=== PATIENT | female | born 1930 | race Caucasian/White ===

== ENCOUNTER 2016-12-26 08:33 | Outpatient (CLI) | payer MEDICARE, OTHER ==
[2016-12-26 19:59] LABS: BASOPHILS # (AUTO) 0.1 10^3/uL (0.0-0.1); BASOPHILS % (AUTO) 1.1 %; EOSINOPHILS # (AUTO) 0.5 10^3/uL (0.0-0.7); EOSINOPHILS % (AUTO) 4.3 %; HCT - HEMATOCRIT 41.4 % (37.0-47.0); HGB - HEMOGLOBIN 13.3 g/dL (12.0-16.0); LYMPHOCYTES # (AUTO) 2.9 10^3/uL (1.5-3.5); LYMPHOCYTES % (AUTO) 25.8 %; MEAN CORPUSCULAR HEMOGLOBIN 28.6 pg (27.0-31.0); MEAN CORPUSCULAR HGB CONC 32.1 g/dL (32.0-36.0); MEAN CORPUSCULAR VOLUME 89.3 fL (81.0-99.0); MEAN PLATELET VOLUME 11.1 fL (7.9-10.8); MONOCYTES % (AUTO) 9.2 %; NEUTROPHILS # (AUTO) 6.7 10^3/uL (1.5-6.6); NEUTROPHILS % (AUTO) 59.6 %; NUCLEATED RED BLOOD CELLS AUTO 0.1 /100WBC; RED BLOOD COUNT 4.64 10^6/uL (4.20-5.40); RED CELL DISTRIBUTION WIDTH 13.6 % (12.0-15.0); UNCORRECTED WHITE BLOOD COUNT 11.3 x10^3/uL; WHITE BLOOD COUNT 11.3 x10^3/uL (4.8-10.8)
[2016-12-26 20:09] LABS: CALCIUM 10.4 mg/dL (8.5-10.3); CREATININE 1.3 mg/dL (0.4-1.0); MAGNESIUM 1.5 mg/dL (1.7-2.8); POTASSIUM 3.8 mmol/L (3.5-5.0)
== END 2016-12-26 08:34 | disposition home or self-care (01) ==
LOC: LAB.R 08:33
DX: E83.42 Hypomagnesemia (principal); R79.89 Other specified abnormal findings of blood chemistry; R68.89 Other general symptoms and signs
CPT/HCPCS: 80048; 83735; 85025

== ENCOUNTER 2017-01-11 14:50 | Outpatient (CLI) | payer MEDICARE, OTHER | END 2017-01-11 14:51 | disposition home or self-care (01) | DX: R79.9 Abnormal finding of blood chemistry, unspecified (principal) ==

== ENCOUNTER 2017-01-26 08:00 | Outpatient (CLI) | payer MEDICARE, OTHER ==
[2017-01-26 23:17] LABS: BILIRUBIN,URINE NEGATIVE (NEGATIVE); PH,URINE 6.5 PH (5.0-7.5)
[2017-01-26 23:21] LABS: UA w/ MICROSCOPIC CHARGE YES
[2017-01-26 23:44] LABS: UR CULTURE IF IND NOT INDICATED; WBC,URINE >25 /HPF (0-5)
== END 2017-01-26 08:01 | disposition home or self-care (01) ==
LOC: LAB.R 08:00
DX: N39.0 Urinary tract infection, site not specified (principal)
CPT/HCPCS: 81001; 81003; 87086

== ENCOUNTER 2017-02-24 08:00 | Outpatient (CLI) | payer MEDICARE, OTHER ==
[2017-02-24 21:44] LABS: BASOPHILS # (AUTO) 0.1 10^3/uL (0.0-0.1); BASOPHILS % (AUTO) 0.6 %; EOSINOPHILS # (AUTO) 0.4 10^3/uL (0.0-0.7); EOSINOPHILS % (AUTO) 4.2 %; HCT - HEMATOCRIT 40.3 % (37.0-47.0); LYMPHOCYTES # (AUTO) 2.7 10^3/uL (1.5-3.5); LYMPHOCYTES % (AUTO) 27.9 %; MEAN CORPUSCULAR HEMOGLOBIN 28.5 pg (27.0-31.0); MEAN CORPUSCULAR HGB CONC 32.3 g/dL (32.0-36.0); MEAN CORPUSCULAR VOLUME 88.4 fL (81.0-99.0); MEAN PLATELET VOLUME 9.6 fL (7.9-10.8); MONOCYTES # (AUTO) 0.9 10^3/uL (0.0-1.0); MONOCYTES % (AUTO) 8.9 %; NEUTROPHILS # (AUTO) 5.6 10^3/uL (1.5-6.6); NEUTROPHILS % (AUTO) 58.4 %; NUCLEATED RED BLOOD CELLS AUTO 0.1 /100WBC; RED BLOOD COUNT 4.56 10^6/uL (4.20-5.40); RED CELL DISTRIBUTION WIDTH 14.8 % (12.0-15.0); UNCORRECTED WHITE BLOOD COUNT 9.6 x10^3/uL; WHITE BLOOD COUNT 9.6 x10^3/uL (4.8-10.8)
[2017-02-24 21:57] LABS: ALBUMIN/GLOBULIN RATIO 0.8 (1.0-2.2); BILIRUBIN,TOTAL 0.4 mg/dL (0.2-1.0); CALCIUM 9.9 mg/dL (8.5-10.3); CREATININE 1.5 mg/dL (0.4-1.0); POTASSIUM 3.2 mmol/L (3.5-5.0); TOTAL PROTEIN 7.3 g/dL (6.7-8.2)
[2017-02-24 22:28] LABS: THYROID STIMULATING HORMONE 0.22 uIU/mL (0.34-5.60)
== END 2017-02-24 08:01 | disposition home or self-care (01) ==
LOC: LAB.R 08:00
DX: I10 Essential (primary) hypertension (principal); E03.9 Hypothyroidism, unspecified
CPT/HCPCS: 80053; 82465; 84439; 84443; 85025

== ENCOUNTER 2017-03-06 16:20 | Outpatient (CLI) | payer MEDICARE, OTHER ==
[2017-03-06 01:06] LABS: CALCIUM 9.9 mg/dL (8.5-10.3); CREATININE 1.6 mg/dL (0.4-1.0); POTASSIUM 4.5 mmol/L (3.5-5.0)
== END 2017-03-06 16:21 | disposition home or self-care (01) ==
LOC: LAB.R 16:20
DX: R79.89 Other specified abnormal findings of blood chemistry (principal)
CPT/HCPCS: 80048

== ENCOUNTER 2017-05-28 15:10 | Outpatient (CLI) | payer MEDICARE, OTHER ==
[2017-05-28 16:10] LABS: CALCIUM 10.3 mg/dL (8.5-10.3); CREATININE 1.3 mg/dL (0.4-1.0)
[2017-05-28 16:43] LABS: THYROID STIMULATING HORMONE 1.98 uIU/mL (0.34-5.60)
== END 2017-05-28 15:11 | disposition home or self-care (01) ==
LOC: LAB.R 15:10
DX: F32.9 Major depressive disorder, single episode, unspecified (principal); E03.9 Hypothyroidism, unspecified
CPT/HCPCS: 80048; 84439; 84443

== ENCOUNTER 2017-08-07 08:00 | Outpatient (CLI) | payer MEDICARE, OTHER ==
[2017-08-07 14:23] LABS: BASOPHILS # (AUTO) 0.1 10^3/uL (0.0-0.1); BASOPHILS % (AUTO) 0.6 %; EOSINOPHILS # (AUTO) 0.7 10^3/uL (0.0-0.7); EOSINOPHILS % (AUTO) 7.8 %; HGB - HEMOGLOBIN 12.8 g/dL (12.0-16.0); LYMPHOCYTES # (AUTO) 2.3 10^3/uL (1.5-3.5); LYMPHOCYTES % (AUTO) 26.6 %; MEAN CORPUSCULAR HEMOGLOBIN 29.4 pg (27.0-31.0); MEAN CORPUSCULAR HGB CONC 32.7 g/dL (32.0-36.0); MEAN CORPUSCULAR VOLUME 89.9 fL (81.0-99.0); MEAN PLATELET VOLUME 10.1 fL (7.9-10.8); MONOCYTES # (AUTO) 0.8 10^3/uL (0.0-1.0); NEUTROPHILS # (AUTO) 4.8 10^3/uL (1.5-6.6); NUCLEATED RED BLOOD CELLS AUTO 0.1 /100WBC; RED BLOOD COUNT 4.34 10^6/uL (4.20-5.40); RED CELL DISTRIBUTION WIDTH 14.2 % (12.0-15.0); UNCORRECTED WHITE BLOOD COUNT 8.6 x10^3/uL; WHITE BLOOD COUNT 8.6 x10^3/uL (4.8-10.8)
[2017-08-07 14:27] LABS: ALBUMIN/GLOBULIN RATIO 1.1 (1.0-2.2); BILIRUBIN,TOTAL 0.5 mg/dL (0.2-1.0); BUN - BLOOD UREA NITROGEN 19 mg/dL (6-20); CALCIUM 9.9 mg/dL (8.5-10.3); CARBON DIOXIDE - CO2 29 mmol/L (21-32); CHLORIDE 96 mmol/L (101-111); CREATININE 1.2 mg/dL (0.4-1.0); GFR - MDRD 42 (>89); GLUCOSE 103 mg/dL (70-100); POTASSIUM 3.8 mmol/L (3.5-5.0); SODIUM 135 mmol/L (135-145); TOTAL PROTEIN 6.6 g/dL (6.7-8.2)
[2017-08-07 14:33] LABS: BILIRUBIN,URINE NEGATIVE (NEGATIVE); PH,URINE 7.5 PH (5.0-7.5)
[2017-08-07 15:03] LABS: UA CHARGE (STRIP ONLY) YES; UR CULTURE IF IND NOT INDICATED
== END 2017-08-07 08:01 ==
LOC: LAB.R 08:00
DX: I50.9 Heart failure, unspecified (principal); N39.0 Urinary tract infection, site not specified; Q66.7 Congenital pes cavus
CPT/HCPCS: 80053; 81001; 81003; 84443; 85025; 87086

== ENCOUNTER 2017-09-16 19:00 | Outpatient (CLI) | payer MEDICARE, OTHER ==
[2017-09-16 20:41] LABS: BASOPHILS # (AUTO) 0.1 10^3/uL (0.0-0.1); EOSINOPHILS # (AUTO) 0.7 10^3/uL (0.0-0.7); EOSINOPHILS % (AUTO) 6.7 %; HGB - HEMOGLOBIN 12.8 g/dL (12.0-16.0); LYMPHOCYTES # (AUTO) 2.9 10^3/uL (1.5-3.5); LYMPHOCYTES % (AUTO) 28.1 %; MEAN CORPUSCULAR HEMOGLOBIN 28.7 pg (27.0-31.0); MEAN CORPUSCULAR HGB CONC 31.8 g/dL (32.0-36.0); MEAN CORPUSCULAR VOLUME 90.2 fL (81.0-99.0); MEAN PLATELET VOLUME 10.4 fL (7.9-10.8); MONOCYTES # (AUTO) 0.9 10^3/uL (0.0-1.0); MONOCYTES % (AUTO) 9.2 %; NEUTROPHILS # (AUTO) 5.6 10^3/uL (1.5-6.6); PLT - PLATELET COUNT 253 10^3/uL (130-450); RED BLOOD COUNT 4.45 10^6/uL (4.20-5.40); RED CELL DISTRIBUTION WIDTH 13.8 % (12.0-15.0); WHITE BLOOD COUNT 10.2 x10^3/uL (4.8-10.8)
[2017-09-16 20:57] LABS: ALBUMIN 3.8 g/dL (3.2-5.5); ALBUMIN/GLOBULIN RATIO 1.1 (1.0-2.2); BILIRUBIN,TOTAL 0.5 mg/dL (0.2-1.0); CALCIUM 9.9 mg/dL (8.5-10.3); CREATININE 1.3 mg/dL (0.4-1.0); TOTAL PROTEIN 7.4 g/dL (6.7-8.2)
[2017-09-16 21:13] LABS: THYROID STIMULATING HORMONE 0.31 uIU/mL (0.34-5.60)
[2017-09-16 21:15] LABS: FREE T4 (FREE THYROXINE) 1.14 ng/dL (0.58-1.64)
== END 2017-09-16 19:01 ==
LOC: LAB.R 19:00
DX: R79.89 Other specified abnormal findings of blood chemistry (principal); R70.0 Elevated erythrocyte sedimentation rate; E03.9 Hypothyroidism, unspecified; F33.3 Major depressive disorder, recurrent, severe with psychotic symptoms
CPT/HCPCS: 80053; 84439; 84443; 85025; 85651

== ENCOUNTER 2017-11-24 08:00 | Outpatient (CLI) | payer MEDICARE, OTHER ==
[2017-11-24 13:45] LABS: BASOPHILS # (AUTO) 0.1 10^3/uL (0.0-0.1); BASOPHILS % (AUTO) 0.8 %; EOSINOPHILS # (AUTO) 0.4 10^3/uL (0.0-0.7); EOSINOPHILS % (AUTO) 4.7 %; HGB - HEMOGLOBIN 12.8 g/dL (12.0-16.0); LYMPHOCYTES # (AUTO) 2.2 10^3/uL (1.5-3.5); LYMPHOCYTES % (AUTO) 23.7 %; MEAN CORPUSCULAR HEMOGLOBIN 29.4 pg (27.0-31.0); MEAN CORPUSCULAR HGB CONC 32.8 g/dL (32.0-36.0); MEAN CORPUSCULAR VOLUME 89.4 fL (81.0-99.0); MEAN PLATELET VOLUME 9.8 fL (7.9-10.8); MONOCYTES % (AUTO) 10.3 %; NEUTROPHILS # (AUTO) 5.6 10^3/uL (1.5-6.6); NEUTROPHILS % (AUTO) 60.5 %; PLT - PLATELET COUNT 256 10^3/uL (130-450); RED BLOOD COUNT 4.36 10^6/uL (4.20-5.40); RED CELL DISTRIBUTION WIDTH 13.2 % (12.0-15.0); WHITE BLOOD COUNT 9.2 x10^3/uL (4.8-10.8)
[2017-11-24 14:38] LABS: CHOL/HDL RATIO 3.1 (<4.4); CHOLESTEROL 157 mg/dL; HDL CHOLESTEROL 51 mg/dL; LDL CHOLESTEROL,CALCULATED 90 mg/dL; LDL/HDL RATIO 1.8 (<4.4); VLDL CHOLESTEROL 16 mg/dL
== END 2017-11-24 08:01 ==
LOC: LAB.R 08:00
DX: E78.5 Hyperlipidemia, unspecified (principal); I10 Essential (primary) hypertension; R70.0 Elevated erythrocyte sedimentation rate; E55.9 Vitamin D deficiency, unspecified
CPT/HCPCS: 80061; 82306; 83721; 84443; 85025; 85651

== ENCOUNTER 2017-11-25 08:00 | Outpatient (CLI) | payer MEDICARE, OTHER ==
[2017-11-25 18:16] LABS: BILIRUBIN,URINE NEGATIVE (NEGATIVE); GLUCOSE, URINE (UA) NEGATIVE (NEGATIVE); KETONES,URINE (UA) NEGATIVE (NEGATIVE); LEUKOCYTE ESTERASE, URINE NEGATIVE (NEGATIVE); NITRITE,URINE NEGATIVE (NEGATIVE); OCCULT BLOOD,URINE NEGATIVE (NEGATIVE); PH,URINE 6.5 PH (5.0-7.5); PROTEIN,URINE NEGATIVE (NEGATIVE); UROBILINOGEN,URINE 0.2 (NORMAL) E.U./dL (NORMAL)
[2017-11-25 18:17] LABS: CLARITY,URINE CLEAR (CLEAR)
== END 2017-11-25 08:01 ==
LOC: LAB.R 08:00
DX: N18.6 End stage renal disease (principal)
CPT/HCPCS: 81001; 81003; 87086

== ENCOUNTER 2017-12-25 08:00 | Outpatient (CLI) | payer MEDICARE, OTHER | END 2017-12-25 08:01 | disposition home or self-care (01) | LOC: LAB.R 08:00 | DX: E03.9 Hypothyroidism, unspecified (principal) | CPT/HCPCS: 84443 ==

== ENCOUNTER 2018-03-09 21:28 | Outpatient (CLI) | payer MEDICARE, OTHER | END 2018-03-09 21:29 | disposition critical access hospital (66) | LOC: EMS 21:28 | PROVIDERS: ATTEND Surgery | DX: R17 Unspecified jaundice (principal); R63.3 Feeding difficulties | CPT/HCPCS: A0425; A0429 ==

== ENCOUNTER 2018-03-09 21:36 | Inpatient (IN) | payer MEDICARE, OTHER ==
--- NOTE | 2018-03-09 21:49 | ED Physician Documentation ---
History of Present Illness - Stated complaint Stated Complaint: NOT EATING, YELLOW - Chief complaint Chief Complaint: General - History obtained from History obtained from: EMS, Caregiver, Other (PMD (Dr. Crespo called and discussed this case with me prior to patient's arrival). Patient cannot contribute to HPI or reliably to ROS due to dementia/confusion) - History of Present Illness Timing: Other (noted today by staff at [facility]) - Additonal information Additional information: sent from [facility] for jaundice that was noted today, as well as not taking in PO x 1- 2 days. Review of Systems Unable to obtain: Dementia PD PAST MEDICAL HISTORY - Past Medical History Past Medical History: Yes Cardiovascular: Hypertension Endocrine/Autoimmune: HyPOthyroidism Musculoskeletal: Chronic back pain - Past Surgical History Past Surgical History: Yes General: Cholecystectomy, Appendectomy Ortho: Knee replacement /REFRIGERATION TECHNICIAN: Mastectomy - Present Medications Home Medications: Ambulatory Orders Medication Instructions Recorded Confirmed Levothyroxine [Synthroid] 100 mcg PO MOTUWETHFRSA@0600 03/04/14 03/10/18 Chlorthalidone 25 mg PO MOWEFR@0800 07/03/16 03/10/18 Acetaminophen [Tylenol Extra 500 mg PO Q6H PRN 03/10/18 03/10/18 Strength] Albuterol 2.5 mg INH Q4H PRN 03/10/18 03/10/18 Atenolol [Tenormin] 25 mg PO DAILY 03/10/18 03/10/18 Calcium Carbonate [Tums (Calcium 500 mg PO QDDINNER 03/10/18 03/10/18 Carbonate 500mg)] DULoxetine [Cymbalta] 20 mg PO DAILY 03/10/18 03/10/18 Gabapentin [Neurontin] 100 mg PO QPM 03/10/18 03/10/18 HYDROcod/ACETAM 5/325 [Coats 5/325] 1 tab PO Q4H PRN 03/10/18 03/10/18 Levothyroxine Sodium [Synthroid] 50 mcg PO [place]@59903/10/18 03/10/18 Omeprazole [PriLOSEC] 20 mg PO DAILY 03/10/18 03/10/18 Potassium Chloride [Micro-K] 10 meq PO 0800 03/10/18 03/10/18 Promethazine Supp [Phenergan Supp] 25 mg [place] Q6H PRN 03/10/18 03/10/18 raNITIdine [Zantac] 150 mg PO DAILY 03/10/18 03/10/18 - Allergies Allergies/Adverse Reactions: Allergies Allergy/AdvReac Type Severity Reaction Status Date / Time No Known Drug Allergies Allergy Verified 03/09/18 21:47 - Social History Does the pt smoke?: No Smoking Status: Never smoker Does the pt drink ETOH?: No Does the pt have substance abuse?: No - Immunizations Immunizations are current?: No Immunizations: TDAP >10years/unknown, Other immun current, Other immun not current - POLST Patient has POLST: Yes PD ED PE NORMAL - Vitals Vital signs reviewed: Yes - General General: No acute distress, Well developed/nourished, Other (awake, alert, pleasant and conversant but confused, only oriented to self) - HEENT HEENT: PERRL, EOMI, Other (mild bilateral icteric sclera) - Neck Neck: Supple, no meningeal sign - Cardiac Cardiac: RRR - Respiratory Respiratory: No respiratory distress, Clear bilaterally - Abdomen Abdomen: Normal bowel sounds, Soft, Non tender, Non distended, No organomegaly - Derm Derm: Normal color, Warm and dry - Extremities Extremities: No edema - Neuro Neuro: No motor deficit, No sensory deficit, Normal speech Eye Opening: Spontaneous Motor: Obeys Commands Verbal: Confused GCS Score: 14 PD ED PE EXPANDED - Cardiac Cardiac: Murmur Present (2/6 RADHA at base) Results - Vitals Vitals: Vital Signs - 24 hr 03/09/18 03/09/18 03/10/18 22:27 23:43 01:08 Temperature Heart Rate 62 71 60 Heart Rate [ Brachial] Respiratory 16 18 16 Rate Blood Pressure 114/68 125/68 105/64 Blood Pressure [Left Radial artery] O2 Saturation 97 96 97 03/10/18 03/10/18 03/10/18 01:54 02:48 06:15 Temperature 36.0 C L 36.3 C L 36.3 C L Heart Rate 60 Heart Rate [ 61 60 Brachial] Respiratory 18 18 16 Rate Blood Pressure 123/73 Blood Pressure 101/86 H 129/55 L [Left Radial artery] O2 Saturation 99 98 100 03/10/18 03/10/18 03/10/18 07:39 12:05 12:14 Temperature 36.3 C L 36.3 C L Heart Rate Heart Rate [ 55 L 56 L 58 L Brachial] Respiratory 19 16 16 Rate Blood Pressure Blood Pressure 124/55 L 122/105 H 127/58 L [Left Radial artery] O2 Saturation 98 100 99 03/10/18 15:42 Temperature 36.2 C L Heart Rate Heart Rate [ 55 L Brachial] Respiratory 18 Rate Blood Pressure Blood Pressure 123/55 L [Left Radial artery] O2 Saturation 96 Oxygen O2 Source [With Activity] Room air O2 Source Room air - Labs Labs: Laboratory Tests 03/09/18 03/09/18 03/09/18 22:02 22:02 22:02 WBC 10.3 RBC 4.39 Hgb 12.8 Hct 39.0 MCV 88.9 MCH 29.3 MCHC 32.9 RDW 14.9 Plt Count 330 MPV 9.3 Neut # (Auto) 6.6 Lymph # (Auto) 2.0 [place] # (Auto) 1.3 H Eos # (Auto) 0.4 Baso # (Auto) 0.1 Absolute Nucleated RBC 0.00 Nucleated RBC % 0.0 Sodium 128 L Potassium 2.8 L Chloride 88 L Carbon Dioxide 33 H Anion Gap 7.0 BUN 15 Creatinine 1.1 H Estimated GFR (MDRD) 47 L Glucose 122 H Lactic Acid 1.5 Calcium 9.2 Phosphorus Magnesium Total Bilirubin 7.6 H Direct Bilirubin 4.2 H AST 139 H ALT 65 H Alkaline Phosphatase 305 H Total Protein 6.5 L Albumin 2.8 L Globulin 3.7 Albumin/Globulin Ratio 03/10/18 03/10/18 03/10/18 06:06 06:06 06:06 WBC 9.0 RBC 4.47 Hgb 13.1 Hct 39.9 MCV 89.1 MCH 29.4 MCHC 33.0 RDW 14.5 Plt Count 291 MPV 8.8 Neut # (Auto) 5.6 Lymph # (Auto) 1.7 [place] # (Auto) 1.3 H Eos # (Auto) 0.4 Baso # (Auto) 0.1 Absolute Nucleated RBC 0.00 Nucleated RBC % 0.0 Sodium 132 L Potassium 2.8 L Chloride 92 L Carbon Dioxide 33 H Anion Gap 7.0 BUN 13 Creatinine 1.1 H Estimated GFR (MDRD) 47 L Glucose 112 H Lactic Acid 1.1 Calcium 9.1 Phosphorus 2.8 Magnesium 1.3 L Total Bilirubin 7.8 H Direct Bilirubin AST 129 H ALT 62 H Alkaline Phosphatase 287 H Total Protein 6.1 L Albumin 2.4 L Globulin 3.7 Albumin/Globulin Ratio 0.6 L - Rads (name of study) CT A/P Radiology: Prelim report reviewed, See rad report PD MEDICAL DECISION MAKING - ED course Complexity details: reviewed old records, reviewed results, re-evaluated patient , considered differential, d/w patient - Sepsis Event Vital Signs: Vital Signs - 24 hr 03/09/18 03/09/18 03/10/18 22:27 23:43 01:08 Temperature Heart Rate 62 71 60 Heart Rate [ Brachial] Respiratory 16 18 16 Rate Blood Pressure 114/68 125/68 105/64 Blood Pressure [Left Radial artery] O2 Saturation 97 96 97 03/10/18 03/10/18 03/10/18 01:54 02:48 06:15 Temperature 36.0 C L 36.3 C L 36.3 C L Heart Rate 60 Heart Rate [ 61 60 Brachial] Respiratory 18 18 16 Rate Blood Pressure 123/73 Blood Pressure 101/86 H 129/55 L [Left Radial artery] O2 Saturation 99 98 100 03/10/18 03/10/18 03/10/18 07:39 12:05 12:14 Temperature 36.3 C L 36.3 C L Heart Rate Heart Rate [ 55 L 56 L 58 L Brachial] Respiratory 19 16 16 Rate Blood Pressure Blood Pressure 124/55 L 122/105 H 127/58 L [Left Radial artery] O2 Saturation 98 100 99 03/10/18 15:42 Temperature 36.2 C L Heart Rate Heart Rate [ 55 L Brachial] Respiratory 18 Rate Blood Pressure Blood Pressure 123/55 L [Left Radial artery] O2 Saturation 96 Oxygen O2 Source [With Activity] Room air O2 Source Room air Departure - Departure Disposition: ED Place in Observation Clinical Impression: Hyperbilirubinemia, Hypokalemia, Pancreatic mass Condition: Stable Discharge Date/Time: 03/10/18 02:16
[2018-03-09 22:13] LABS: BASOPHILS # (AUTO) 0.1 10^3/uL (0.0-0.1); BASOPHILS % (AUTO) 0.9 %; EOSINOPHILS # (AUTO) 0.4 10^3/uL (0.0-0.7); EOSINOPHILS % (AUTO) 3.5 %; HGB - HEMOGLOBIN 12.8 g/dL (12.0-16.0); LYMPHOCYTES % (AUTO) 19.1 %; MEAN CORPUSCULAR HEMOGLOBIN 29.3 pg (27.0-31.0); MEAN CORPUSCULAR HGB CONC 32.9 g/dL (32.0-36.0); MEAN CORPUSCULAR VOLUME 88.9 fL (81.0-99.0); MEAN PLATELET VOLUME 9.3 fL (7.9-10.8); MONOCYTES # (AUTO) 1.3 10^3/uL (0.0-1.0); MONOCYTES % (AUTO) 12.3 %; NEUTROPHILS # (AUTO) 6.6 10^3/uL (1.5-6.6); NEUTROPHILS % (AUTO) 64.2 %; PLT - PLATELET COUNT 330 10^3/uL (130-450); RED BLOOD COUNT 4.39 10^6/uL (4.20-5.40); RED CELL DISTRIBUTION WIDTH 14.9 % (12.0-15.0); WHITE BLOOD COUNT 10.3 x10^3/uL (4.8-10.8)
[2018-03-09 22:30] LABS: ALBUMIN 2.8 g/dL (3.2-5.5); BILIRUBIN,DIRECT 4.2 mg/dL (0.1-0.5); BILIRUBIN,TOTAL 7.6 mg/dL (0.2-1.0); CALCIUM 9.2 mg/dL (8.5-10.3); CREATININE 1.1 mg/dL (0.4-1.0); TOTAL PROTEIN 6.5 g/dL (6.7-8.2)
[2018-03-09] MEDS ORDERED: IOPAMIDOL-300 100 ML VIAL ONE (23:34)
[2018-03-09] MEDS ORDERED: IOPAMIDOL-300 100 ML VIAL IVP ONE (23:40)
--- NOTE | 2018-03-10 00:22 | CT Report ---
Procedure Date: 03/09/2018 Accession Number: [id number] / [id number] Procedure: CT - Abdomen/Pelvis W/ CPT Code: FULL RESULT: EXAM: CT ABDOMEN AND PELVIS EXAM DATE: 03/09/2018 11:41 PM. CLINICAL HISTORY: Painless jaundice. COMPARISONS: None. TECHNIQUE: Routine helical CT imaging was performed through the abdomen and pelvis. IV contrast: 100 mL Isovue 300. Enteric contrast: No. Reconstructions: Coronal and sagittal. In accordance with CT protocol optimization, one or more of the following dose reduction techniques were utilized for this exam: automated exposure control, adjustment of mA and/or KV based on patient size, or use of iterative reconstructive technique. FINDINGS: ABDOMEN: Liver: Small calcified left hepatic lobe granuloma. There is moderate to severe intrahepatic biliary ductal dilation. No definite suspicious hepatic parenchymal mass noted at this time. Subtle possible tiny low-density lesion within the posterior portion of the right hepatic lobe in segment-6 (image 33 series 3), difficult to be certain and difficult to characterize. Stomach/Distal Esophagus: Medium to large sized hiatal and paraesophageal hernia is present. This contains upper two-third of the stomach. Gallbladder: Not visualized, possibly surgically absent. Bile Ducts: Moderate to severe intrahepatic biliary ductal dilation is present. The CBD is also dilated, up to the level of the pancreatic head. Maximal CBD diameter measures 2.3 cm (image 32 series 3). Pancreas: Diffusely abnormal appearance of the pancreas is present. There is heterogeneous appearance of the neck, head, as well as uncinate process of the pancreas. Abnormal low density appearance within the distal body and tail of the pancreas noted. Spleen: No significant abnormality. Kidneys: Numerous low-density renal lesions are noted bilaterally, suggestive of cysts. Some of the smaller lesions are difficult to characterize on this exam. There is also a hyperdense abnormality within the upper pole of the left kidney, also difficult to characterize. Small exophytic intermediate density lesion arising from the lateral portion of the right mid to lower kidney also noted (image 39 series 3), difficult to characterize on this exam. No definite kidney stone. No hydronephrosis. Adrenals: No significant abnormality. Bowel: No obstruction. Average fecal residual. Appendix: The appendix could not be identified with certainty. However, there are no secondary signs of appendicitis demonstrated at this time. Lymph Nodes: No pathologically enlarged nodes. Vasculature: Normal caliber aorta. There is moderate to severe aortic and branch vessel atherosclerosis. 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 Severely attenuated distal portion of the splenic vein. Superior mesenteric vein at the level of the portal splenic confluence is visualized, appearing patent. Fluid: There is small to medium volume ascites. Abdominal Wall: No significant abnormality. Other: Engorgement of the omentum is noted. This raises the possibility of omental carcinomatosis. PELVIS: Uterus and Ovaries: Surgically absent uterus. Ovaries are not visualized, possibly surgically absent as well. Bladder: No significant abnormality. Lymph Nodes: No pathologically enlarged nodes. Fluid: No significant free fluid. Other: None. BONES: No suspicious bony lesions. However, bones are osteopenic. This reduces exam sensitivity and specificity for detection of subtle bony lesions and/or fractures. There is severe multilevel degenerative change within the spine. LOWER CHEST: No significant consolidation or effusion. There are several small irregular nodular abnormalities within the right lower lobe, with spiculated appearance. One such abnormality is laterally within the right lower lobe (image 4 series 3), measuring 1.5 cm. Suspect a subtle tiny lingular nodule (image 10 series 3). Similar subtle tiny nodule is suspected within the right middle lobe (image 8 series 3). Additional bibasilar subsegmental consolidation, with features suggestive of atelectasis. Other airspace disease difficult to exclude. IMPRESSION: 1. Intrahepatic and extrahepatic biliary ductal dilation is present with diffuse abnormal appearance of the pancreas neck, head, and uncinate process, worrisome for a primary pancreatic carcinoma. Associated occlusion of the portal vein as well as severe attenuation of the proximal portion of the splenic vein. Superior mesenteric vein near the portal splenic confluence appears patent as visualized. 2. There is a subtle tiny low-density lesion within the posterior aspect of segment-6, difficult to characterize. This may be a tiny cyst, hemangioma, artifact, or metastasis. 3. Induration of the omental vessels with thickening noted. This may be a sequela of thrombosis of the portal vein. However, omental carcinomatosis difficult to exclude with certainty. There is a small to medium volume ascites. 4. There are several irregular nodules within the lung bases bilaterally, right greater than left. These measure up to 1.5 cm. These are worrisome for metastatic disease. 5. Gallbladder is not visualized, probably surgically absent. 6. There is medium to large sliding hiatal and paraesophageal hernia containing two-thirds of the stomach. RADIA
[2018-03-10] MEDS ORDERED: SODIUM CHLORIDE 0.9% 1,000 ML IV STA (01:32)
[2018-03-10] MEDS ORDERED: SODIUM CHLORIDE 0.9% 500 ML IV STA (01:32)
--- NOTE | 2018-03-10 01:38 | HISTORY & PHYSICAL EXAMINATION ---
Chief Complaint - Chief Complaint Chief Complaint: Poor appetite History of Present Illness - Admitted From Admitted From:: Emergency Department - History Obtained From Records Reviewed: Yes History obtained from: Medical records and patient Exam Limitations: Patient demented unable to provide history - History of Present Illness HPI Comment/Other: Patient is an 87-year-old female who lives at [facility] with a past medical history significant for advanced dementia, hypertension, obesity, osteoarthritis status post bilateral knee replacements, hypothyroidism and history of breast cancer status post meniscectomy who presented to the emergency department due to poor appetite. The patient states that she does not know why she was brought to the emergency department and thinks that she is fine. The patient has advanced dementia and cannot provide a very reliable history. The records from [facility] state that the patient has not been eating well for the last week and they were concerned that is why they sent her to the emergency department. The patient's primary care physician spoke with the emergency room doctor and confirmed the story stating that the patient has not been eating or drinking for the last week and he was concerned that she may be dehydrated. The patient herself denies any headaches, blurred vision, runny nose, sore throat, nasal congestion, difficulty swallowing, chest pain, fevers, chills, cough, shortness of breath, orthopnea, PND, increased lower extremity swelling, abdominal pain, nausea, vomiting, diarrhea, constipation, urinary urgency, urinary frequency, dysuria, joint pain, joint swelling, back pain, neck stiffness, polyuria, polydipsia, hair loss, skin changes or any focal neurologic deficits. When patient was told that she has not been eating well she states that she has not been eating because she has been trying to lose weight. On presentation to the emergency department the patient is afebrile and vital signs are all within normal limits. The patient's lab work revealed a hypo- natremia of 128 with hypokalemia of 2.8 and hypochloremia of 88 suggesting the patient was very dehydrated. The patient was also found to have a elevated bilirubin of 7.6 with an elevated AST of 139, ALT of 65 and alk phos of 305. The patient also appeared jaundiced on examination and the emergency room physician ordered a CT of her abdomen and pelvis given her presentation of painless jaundice. The CT scan of the abdomen and pelvis revealed intrahepatic and extrahepatic biliary ductal dilation with diffuse abnormal appearance of the pancreas neck, head and uncinate process worrisome for primary pancreatic carcinoma. There is also associated occlusion of the portal vein as well as severe attenuation of the proximal portion of the splenic vein. 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 The patient also was found to have a moderate amount of ascites. The patient was placed in observation for hydration given her lab work showing that she was dehydrated and had hypokalemia. 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 History - Past Medical History Cardiovascular: reports: Hypertension Endocrine/Autoimmune: reports: HyPOthyroidism Musculoskeletal: reports: Chronic back pain MRSA Hx?: No - Past Surgical History General: reports: Cholecystectomy, Appendectomy Ortho: reports: Knee replacement /FURNITURE SANDER: reports: Mastectomy - Family & Social History Family History Comment/Other: Patient has dementia but states that someone in the family had cancer but she cannot think of who. She states that no one in the family that she can think of had any heart conditions and cannot remember anything further than this. Living arrangement: detention Living Situation: Alone Social History Notes: Patient lives at [facility] due to progressing dementia. The patient moved to [facility] about 10 years ago from [place]. At that time she had moved to take care of her youngest daughter who is since . She has another daughter who lives on [facility] by the name of Jeniffer and she lives in [place]. The patient does not smoke tobacco, drink alcohol or use any illicit drugs. - POLST Patient has POLST: Yes POLST Status: Full Code Meds/Allgy - Home Medications Home Medications: Ambulatory Orders Medication Instructions Recorded Confirmed Levothyroxine [Synthroid] 100 mcg PO DAILY 03/04/14 07/03/16 ALPRAZolam [Alprazolam] 1 mg PO DAILY 08/23/14 07/03/16 Atenolol 50 mg PO DAILY 08/23/14 07/03/16 Duloxetine HCl 30 mg PO DAILY 08/23/14 07/03/16 Acetaminophen/Cod 300/30 [Tylenol 1 tab PO QID PRN 07/03/16 07/03/16 #3] Chlorthalidone 1 tab PO DAILY 07/03/16 07/03/16 Hydrocodone/Acetaminophen 1 each PO QPM PRN #10 tablet 07/03/16 [Hydrocodon-Acetaminophen 5-325] - Allergies Allergies/Adverse Reactions: Allergies Allergy/AdvReac Type Severity Reaction Status Date / Time No Known Drug Allergies Allergy Verified 03/09/18 21:47 Review of Systems - Other Findings Other Findings: Patient has advanced dementia and is not able to provide a reliable review of systems however denies any complaints. Exam - Vital Signs Reviewed Vital Signs: Yes Vital Signs: Vital Signs x48h Temp Pulse Resp BP Pulse Ox 03/10/18 01:08 60 16 105/64 97 03/09/18 23:43 71 18 125/68 96 03/09/18 22:27 62 16 114/68 97 03/09/18 21:40 36.1 C L 60 18 117/53 L 97 - Physical Exam General Appearance: positive: No acute distress, Alert, Other (Demented) Eyes Bilateral: positive: Normal inspection, PERRL, EOMI, No lid inflammation, Conjunctivae nml, Other (Positive for scleral icterus) ENT: positive: ENT inspection nml, Pharynx nml, Dry mucous membranes. negative : Purulent nasal drainage, Pharyngeal erythema, Oral lesions Neck: positive: Nml inspection, Thyroid nml, No JVD, Trachea midline. negative : Thyromegaly, Lymphadenopathy (R), Lymphadenopathy (L), Stiff neck, Kernig's sign, Carotid bruit, Tracheal deviation Respiratory: positive: Chest non-tender, No respiratory distress, Breath sounds nml. negative: Wheezes, Rales, Rhonchi Cardiovascular: positive: Regular rate & rhythm, No murmur, No gallop Peripheral Pulses: positive: 2+ Abdomen: positive: Non-tender, No organomegaly, Nml bowel sounds, No distention , Other (Morbidly obese). negative: Guarding, Rebound, Hepatomegaly Back: positive: Nml inspection. negative: CVA tenderness (R), CVA tenderness (L ) Skin: positive: No rash, Warm, Dry, Other (Jaundiced) Extremities: positive: Non-tender, Full ROM, Nml appearance, Pedal edema ( Bilateral Lower extremity 3+ pitting edema) Neurologic/Psychiatric: positive: CN's nml (2-12), Motor nml, Sensation nml, Mood/affect nml, Disoriented to place, Disoriented to time Conclusion/Plan - Problem List (1) Dehydration Conclusion/Plan: The patient appears to be severely dehydrated likely secondary to not eating or drinking over the last week. The lack of appetite is likely secondary to metastatic cancer with likely origin being pancreas. The patient is very dry on examination, has significant hyponatremia of 128, hypokalemia of 2.8 and hypochloremia of 88. The patient's lactic acid was within normal limits but patient appeared significantly dehydrated on examination. Patient was placed in observation for hydration and electrolyte replacement. Plan: IV fluids Electrolyte replacement Hold chlorthalidone (2) Metastatic cancer Conclusion/Plan: The patient presented with decreased appetite and on presentation appeared jaundiced. The patient's lab work confirmed that she was jaundiced as her total bilirubin was elevated at 7.6 with elevation in her LFTs. The patient had painless jaundice which was concerning for possible pancreatic cancer therefore CT of her abdomen and pelvis was done. 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 Given the patient's age and advanced dementia treatment options will be limited. Plan: Patient will be receiving IV hydration during her observation stay in the hospital. We will consult palliative care and see if we can have a meeting with the patient's daughter to discuss goals of care. The patient is unable to make decisions on her own given her advanced dementia. I did not call the patient's daughter in the middle of the night to inform her of the diagnosis as I did not feel this was appropriate at this time given that the patient is in stable condition. We will need to talk to the daughter in the morning. (3) Hypokalemia Conclusion/Plan: The patient has hypokalemia on presentation likely secondary to poor oral intake over the last week. The patient will be given potassium replacement through IV and will continue to monitor the patient's potassium. (4) Hyponatremia Conclusion/Plan: The patient appears to have hypovolemic hyponatremia with a sodium of 128. The patient appears dry on examination and has not been eating or drinking over the last week. Patient will be given IV fluids and we will continue to monitor her sodium. We will also hold the patient's chlorthalidone. (5) Hypertension Conclusion/Plan: The patient has a history of hypertension but blood pressure is normal to low on presentation. Likely this is secondary to her being dehydrated. We will hold the patient's chlorthalidone and continue her atenolol while she is hospitalized. We will continue to monitor the patient's blood pressure and titrate medication as needed. 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 Currently the patient does not appear to be having any symptoms of hypothyroidism. We will discontinue the patient's home dose of Synthroid at this time. Qualifiers: Hypothyroidism type: unspecified Qualified Code(s): E03.9 - Hypothyroidism , unspecified (7) Dementia Conclusion/Plan: The patient has advanced dementia and is living at [facility]. She has a very poor memory and although she does seem to understand that she is diagnosed with cancer it is difficult to assess what kind of decision making abilities she has at this time. We will need to discuss prognosis and treatment options further with the patient's daughter. The patient's pulse form states that she is a full code and this will also need to be discussed further in the morning. We will consult palliative care. Qualifiers: Dementia type: unspecified type Dementia behavioral disturbance: without behavioral disturbance Qualified Code(s): F03.90 - Unspecified dementia without behavioral disturbance (8) Depression Conclusion/Plan: The patient has a history of depression and is on duloxetine. We will continue the patient's home dose of duloxetine. Qualifiers: Depression Type: unspecified Qualified Code(s): F32.9 - Major depressive disorder, single episode, unspecified - Lab Results Lab results reviewed: Yes Fish Bones: 03/09/18 22:02 03/09/18 22:02 Other Lab Results: Laboratory Results WBC 10.3 x10^3/uL (4.8-10.8) 03/09/18 22:02 RBC 4.39 10^6/uL (4.20-5.40) 03/09/18 22:02 Hgb 12.8 g/dL (12.0-16.0) 03/09/18 22:02 Hct 39.0 % (37.0-47.0) 03/09/18 22:02 MCV 88.9 fL (81.0-99.0) 03/09/18 22:02 MCH 29.3 pg (27.0-31.0) 03/09/18 22:02 MCHC 32.9 g/dL (32.0-36.0) 03/09/18 22:02 RDW 14.9 % (12.0-15.0) 03/09/18 22:02 Plt Count 330 10^3/uL (130-450) 03/09/18 22:02 MPV 9.3 fL (7.9-10.8) 03/09/18 22:02 Neut # (Auto) 6.6 10^3/uL (1.5-6.6) 03/09/18 22:02 Lymph # (Auto) 2.0 10^3/uL (1.5-3.5) 03/09/18 22:02 [place] # (Auto) 1.3 10^3/uL (0.0-1.0) H 03/09/18 22:02 Eos # (Auto) 0.4 10^3/uL (0.0-0.7) 03/09/18 22:02 Baso # (Auto) 0.1 10^3/uL (0.0-0.1) 03/09/18 22:02 Absolute Nucleated RBC 0.00 x10^3/uL 03/09/18 22:02 Nucleated RBC % 0.0 /100WBC 03/09/18 22:02 Sodium 128 mmol/L (135-145) L 03/09/18 22:02 Potassium 2.8 mmol/L (3.5-5.0) L 03/09/18 22:02 Chloride 88 mmol/L (101-111) L 03/09/18 22:02 Carbon Dioxide 33 mmol/L (21-32) H 03/09/18 22:02 Anion Gap 7.0 (6-13) 03/09/18 22:02 BUN 15 mg/dL (6-20) 03/09/18 22:02 Creatinine 1.1 mg/dL (0.4-1.0) H 03/09/18 22:02 Estimated GFR (MDRD) 47 (>89) L 03/09/18 22:02 Glucose 122 mg/dL (70-100) H 03/09/18 22:02 Lactic Acid 1.5 mmol/L (0.5-2.2) 03/09/18 22:02 Calcium 9.2 mg/dL (8.5-10.3) 03/09/18 22:02 Total Bilirubin 7.6 mg/dL (0.2-1.0) H 03/09/18 22:02 Direct Bilirubin 4.2 mg/dL (0.1-0.5) H 03/09/18 22:02 AST 139 IU/L (10-42) H 03/09/18 22:02 ALT 65 IU/L (10-60) H 03/09/18 22:02 Alkaline Phosphatase 305 IU/L (42-121) H 03/09/18 22:02 Total Protein 6.5 g/dL (6.7-8.2) L 03/09/18 22:02 Albumin 2.8 g/dL (3.2-5.5) L 03/09/18 22:02 Globulin 3.7 g/dL (2.1-4.2) 03/09/18 22:02 - Diagnostic Imaging Results Diagnostic Imaging Results: positive: Final report reviewed Core Measures - Anticipated LOS I expect patient to be DC'd or transferred within 96 hours.: Yes - DVT/VTE - Prophylaxis VTE/DVT Prophylaxis med ordered at admit?: Yes
[2018-03-10] MEDS ORDERED: PROCHLORPERAZINE 10 MG/2 ML VIAL IVP PRN (01:39)
[2018-03-10] MEDS ORDERED: SODIUM CHLORIDE FLUSH 0.9% 10 ML SYRINGE IVP PRN (01:39)
[2018-03-10] MEDS ORDERED: MORPHINE 2 MG/ML SYRINGE IVP PRN (01:39)
[2018-03-10] MEDS ORDERED: ACETAMINOPHEN 325 MG TABLET PO PRN (01:39)
[2018-03-10] MEDS ORDERED: PROMETHAZINE 25 MG/1 ML VIAL IM PRN (01:39)
[2018-03-10] MEDS ORDERED: ONDANSETRON 4 MG/2 ML VIAL IVP PRN (01:39)
[2018-03-10] MEDS ORDERED: oxyCODONE 5 MG TABLET PO PRN ×2 (01:39)
[2018-03-10] MEDS: NS W/20 MEQ KCL 1,000 ML IV SCH ×2 (03:09→12:46)
[2018-03-10 06:13] LABS: BASOPHILS # (AUTO) 0.1 10^3/uL (0.0-0.1); BASOPHILS % (AUTO) 0.8 %; EOSINOPHILS # (AUTO) 0.4 10^3/uL (0.0-0.7); EOSINOPHILS % (AUTO) 4.1 %; HGB - HEMOGLOBIN 13.1 g/dL (12.0-16.0); LYMPHOCYTES # (AUTO) 1.7 10^3/uL (1.5-3.5); LYMPHOCYTES % (AUTO) 19.1 %; MEAN CORPUSCULAR HEMOGLOBIN 29.4 pg (27.0-31.0); MEAN CORPUSCULAR VOLUME 89.1 fL (81.0-99.0); MEAN PLATELET VOLUME 8.8 fL (7.9-10.8); MONOCYTES # (AUTO) 1.3 10^3/uL (0.0-1.0); MONOCYTES % (AUTO) 14.1 %; NEUTROPHILS # (AUTO) 5.6 10^3/uL (1.5-6.6); NEUTROPHILS % (AUTO) 61.9 %; PLT - PLATELET COUNT 291 10^3/uL (130-450); RED BLOOD COUNT 4.47 10^6/uL (4.20-5.40); RED CELL DISTRIBUTION WIDTH 14.5 % (12.0-15.0)
[2018-03-10 06:28] LABS: ALBUMIN 2.4 g/dL (3.2-5.5); ALBUMIN/GLOBULIN RATIO 0.6 (1.0-2.2); BILIRUBIN,TOTAL 7.8 mg/dL (0.2-1.0); CALCIUM 9.1 mg/dL (8.5-10.3); CREATININE 1.1 mg/dL (0.4-1.0); MAGNESIUM 1.3 mg/dL (1.7-2.8); PHOSPHORUS 2.8 mg/dL (2.5-4.6); TOTAL PROTEIN 6.1 g/dL (6.7-8.2)
[2018-03-10] MEDS ORDERED: LEVOTHYROXINE 100 MCG TABLET PO SCH (07:00)
[2018-03-10] MEDS: POLYETHYLENE GLYCOL 3350 17 GM PACKET PO SCH (08:53)
[2018-03-10] MEDS: ALPRAZolam 0.25 MG TABLET PO SCH (08:58)
[2018-03-10] MEDS ORDERED: ATENOLOL 25 MG TABLET PO SCH (09:00)
[2018-03-10] MEDS ORDERED: DULoxetine 30 MG CAPSULE PO SCH (09:00)
[2018-03-10] MEDS: FAMOTIDINE 20 MG TABLET PO SCH (09:02)
[2018-03-10] MEDS: ENOXAPARIN 40 MG/0.4 ML SYRINGE SUBQ SCH (09:02)
[2018-03-10] MEDS ORDERED: HYDROcod/ACETAM 5/325 MG TABLET PO PRN (11:57)
[2018-03-10] MEDS ORDERED: ALBUTEROL NEB 2.5 MG/3 ML INH PRN (11:57)
[2018-03-10] MEDS ORDERED: ACETAMINOPHEN 500 MG TABLET PO PRN (11:57)
[2018-03-10] MEDS ORDERED: PROMETHAZINE 25 MG SUPP PR PRN (11:57)
[2018-03-10] MEDS ORDERED: POTASSIUM CHLORIDE INJ 40 MEQ in SODIUM CHLORIDE 0.9% 480 ML IV ONE (12:30)
[2018-03-10] MEDS: MAGNESIUM SULFATE 2 GRAM 2 GM/50 ML BAG IV SCH ×3 (12:42→14:53)
[2018-03-10] MEDS: SODIUM CHLORIDE FLUSH 0.9% 10 ML SYRINGE IVP SCH ×2 (14:14→16:01)
[2018-03-10] MEDS ORDERED: CALCIUM CARBONATE CHEW 500 MG TABLET PO SCH (17:00)
--- NOTE | 2018-03-10 18:54 | PROVIDER PROGRESS NOTE ---
Subjective - Prog Note Date Prog Note Date: 03/10/18 Prog Note Time: 15:00 - Subjective Pt reports feeling: No change Subjective: The patient has advanced dementia and cannot easily make her wants or needs known. She is refusing to eat other than a bite or 2 every so often. She does not appear to be uncomfortable and is smiling. She is afebrile, is not exhibiting any kind of respiratory distress. Current Medications - Current Medications Current Medications: Active Medications Generic Name Dose Route Start Last Admin Trade Name Freq PRN Reason Stop Dose Admin Acetaminophen 650 mg 03/10/18 01:39 Tylenol PO Q4HR PRN Pain 1 to 4 Albuterol 2.5 mg 03/10/18 11:57 INH Q4H PRN Wheezing Alprazolam 1 mg 03/10/18 09:00 03/10/18 08:58 Xanax PO 1 mg DAILY NAEEM Administration Atenolol 25 mg 03/11/18 09:00 Tenormin PO DAILY NAEEM Calcium Carbonate/Glycine 500 mg 03/10/18 17:00 03/10/18 16:07 Tums PO 500 mg QDDINNER NAEEM Administration Chlorthalidone 25 mg 03/11/18 08:00 Chlorthalidone PO MOWEFR@0800 NAEEM Duloxetine HCl 20 mg 03/11/18 09:00 Cymbalta PO DAILY NAEEM Enoxaparin Sodium 40 mg 03/10/18 09:00 03/10/18 09:02 Lovenox SUBQ 40 mg DAILY NAEEM Administration Famotidine 20 mg 03/10/18 09:00 03/10/18 09:02 Pepcid PO 20 mg DAILY NAEEM Administration Gabapentin 100 mg 03/10/18 21:00 Neurontin PO QPM NAEEM Potassium Chloride/Sodium Chloride 1,000 mls @ 100 mls/hr 03/10/18 02:00 12:46 Normal Saline 0.9% W/20 Meq Kcl IV 03/11/18 07:59 100 mls/hr .Q10H NAEEM Administration Levothyroxine Sodium 50 mcg 03/15/18 06:00 Synthroid PO [place]@0600 NAEEM Levothyroxine Sodium 100 mcg 03/11/18 06:00 Synthroid PO MoTuWeThFrSa@0600 NAEEM Morphine Sulfate 2 mg 03/10/18 01:39 Morphine IVP Q2H PRN Pain 8 to 10 Ondansetron HCl 4 mg 03/10/18 01:39 Zofran Inj IVP Q6HR PRN Nausea / Vomiting Oxycodone HCl 5 mg 03/10/18 01:39 Roxicodone PO Q4HR PRN Pain 5 to 7 Oxycodone HCl 10 mg 03/10/18 01:39 Roxicodone PO Q4HR PRN Pain 8 to 10 Pantoprazole Sodium 40 mg 03/11/18 07:00 Protonix PO QDAC NAEEM Polyethylene Glycol 17 gm 03/10/18 09:00 03/10/18 08:53 Miralax PO 17 gm DAILY [facility] Administration Potassium Chloride 10 meq 03/11/18 08:00 Micro-K PO 0800 [facility] Prochlorperazine Edisylate 10 mg 03/10/18 01:39 Compazine Inj IVP Q6HR PRN Nausea / Vomiting Promethazine HCl 25 mg 03/10/18 01:39 Phenergan Inj IM Q6HR PRN Nausea / Vomiting Promethazine HCl 25 mg 03/10/18 11:57 Phenergan Supp LA Q6H PRN Nausea / Vomiting Sodium Chloride 10 ml 03/10/18 01:39 Normal Saline Flush 0.9% IVP PRN PRN NEEDED PER PROVIDER ORDERS Sodium Chloride 10 ml 03/10/18 09:00 03/10/18 16:01 Normal Saline Flush 0.9% IVP Not Given 0100,0900,1700 [facility] Levothyroxine [Synthroid] 100 mcg PO MOTUWETHFRSA@0600 03/04/14 Chlorthalidone 25 mg PO MOWEFR@0800 07/03/16 Acetaminophen [Tylenol Extra Strength] 500 mg PO Q6H PRN 03/10/18 Albuterol 2.5 mg INH Q4H PRN 03/10/18 Atenolol [Tenormin] 25 mg PO DAILY 03/10/18 Calcium Carbonate [Tums (Calcium Carbonate 500mg)] 500 mg PO QDDINNER 03/10/18 DULoxetine [Cymbalta] 20 mg PO DAILY 03/10/18 Gabapentin [Neurontin] 100 mg PO QPM 03/10/18 HYDROcod/ACETAM 5/325 [Bernard 5/325] 1 tab PO Q4H PRN 03/10/18 Levothyroxine Sodium [Synthroid] 50 mcg PO [place]@0600 03/10/18 Omeprazole [PriLOSEC] 20 mg PO DAILY 03/10/18 Potassium Chloride [Micro-K] 10 meq PO 0800 03/10/18 Promethazine Supp [Phenergan Supp] 25 mg LA Q6H PRN 03/10/18 raNITIdine [Zantac] 150 mg PO DAILY 03/10/18 Objective - Vital Signs/Intake & Output Reviewed Vital Signs: Yes Vital Signs: Vital Signs x48h Temp Pulse Resp BP Pulse Ox 03/10/18 15:42 36.2 C L 55 L 18 123/55 L 96 03/10/18 12:14 58 L 16 127/58 L 99 03/10/18 12:05 36.3 C L 56 L 16 122/105 H 100 Intake & Output: Intake & Output 03/07/18 03/08/18 03/09/18 03/10/18 23:59 23:59 23:59 23:59 Intake Total 2260 Output Total 650 Balance 1610 - Objective General Appearance: positive: No acute distress, Alert Eyes Bilateral: positive: Normal inspection, PERRL, EOMI, No lid inflammation, Conjunctivae nml, No scleral icterus ENT: positive: ENT inspection nml, Pharynx nml, No signs of dehydration Neck: positive: Nml inspection, Thyroid nml, No JVD, Trachea midline. negative : Thyromegaly Respiratory: positive: Chest non-tender, No respiratory distress, Breath sounds nml. negative: Wheezes, Rales, Rhonchi Cardiovascular: positive: Regular rate & rhythm, No murmur, No gallop Abdomen: positive: Non-tender, No organomegaly, Nml bowel sounds, No distention. negative: Guarding, Rebound Back: positive: Nml inspection. negative: CVA tenderness (R), CVA tenderness (L ) Skin: positive: Color nml, No rash, Warm, Dry. negative: Cyanosis Extremities: positive: Non-tender, Full ROM, Nml appearance, No pedal edema Neurologic/Psychiatric: positive: CN's nml (2-12), Motor nml, Sensation nml, Mood/affect nml, Disoriented to person, Disoriented to place, Disoriented to time - Lab Results Fish Bones: 03/11/18 05:20 03/11/18 05:20 Other Labs: Lab Results x24hrs 03/10/18 03/10/18 03/10/18 Range/Units 06:06 06:06 06:06 WBC 9.0 (4.8-10.8) x10^3/uL RBC 4.47 (4.20-5.40) 10^6/uL Hgb 13.1 (12.0-16.0) g/dL Hct 39.9 (37.0-47.0) % MCV 89.1 (81.0-99.0) fL MCH 29.4 (27.0-31.0) pg MCHC 33.0 (32.0-36.0) g/dL RDW 14.5 (12.0-15.0) % Plt Count 291 (130-450) 10^3/uL MPV 8.8 (7.9-10.8) fL Neut # (Auto) 5.6 (1.5-6.6) 10^3/uL Lymph # (Auto) 1.7 (1.5-3.5) 10^3/uL Jack # (Auto) 1.3 H (0.0-1.0) 10^3/uL Eos # (Auto) 0.4 (0.0-0.7) 10^3/uL Baso # (Auto) 0.1 (0.0-0.1) 10^3/uL Absolute Nucleated RBC 0.00 x10^3/uL Nucleated RBC % 0.0 /100WBC Sodium 132 L (135-145) mmol/L Potassium 2.8 L (3.5-5.0) mmol/L Chloride 92 L (101-111) mmol/L Carbon Dioxide 33 H (21-32) mmol/L Anion Gap 7.0 (6-13) BUN 13 (6-20) mg/dL Creatinine 1.1 H (0.4-1.0) mg/dL Estimated GFR (MDRD) 47 L (>89) Glucose 112 H (70-100) mg/dL Lactic Acid 1.1 (0.5-2.2) mmol/L Calcium 9.1 (8.5-10.3) mg/dL Phosphorus 2.8 (2.5-4.6) mg/dL Magnesium 1.3 L (1.7-2.8) mg/dL Total Bilirubin 7.8 H (0.2-1.0) mg/dL AST 129 H (10-42) IU/L ALT 62 H (10-60) IU/L Alkaline Phosphatase 287 H (42-121) IU/L Total Protein 6.1 L (6.7-8.2) g/dL Albumin 2.4 L (3.2-5.5) g/dL Globulin 3.7 (2.1-4.2) g/dL Albumin/Globulin Ratio 0.6 L (1.0-2.2) - Diagnostic Imaging Diagnostic Imaging Results: positive: Final report reviewed Diagnostic Imaging Comments: EXAM: CT ABDOMEN AND PELVIS EXAM DATE: 03/09/2018 11:41 PM. CLINICAL HISTORY: Painless jaundice. COMPARISONS: None. TECHNIQUE: Routine helical CT imaging was performed through the abdomen and pelvis. IV contrast: 100 mL Isovue 300. Enteric contrast: No. Reconstructions: Coronal and sagittal. In accordance with CT protocol optimization, one or more of the following dose reduction techniques were utilized for this exam: automated exposure control, adjustment of mA and/or KV based on patient size, or use of iterative reconstructive technique. FINDINGS: ABDOMEN: Liver: Small calcified left hepatic lobe granuloma. There is moderate to severe intrahepatic biliary ductal dilation. No definite suspicious hepatic parenchymal mass noted at this time. Subtle possible tiny low-density lesion within the posterior portion of the right hepatic lobe in segment-6 (image 33 series 3), difficult to be certain and difficult to characterize. Stomach/Distal Esophagus: Medium to large sized hiatal and paraesophageal hernia is present. This contains upper two-third of the stomach. Gallbladder: Not visualized, possibly surgically absent. Bile Ducts: Moderate to severe intrahepatic biliary ductal dilation is present. The CBD is also dilated, up to the level of the pancreatic head. Maximal CBD diameter measures 2.3 cm (image 32 series 3). Pancreas: Diffusely abnormal appearance of the pancreas is present. There is heterogeneous appearance of the neck, head, as well as uncinate process of the pancreas. Abnormal low density appearance within the distal body and tail of the pancreas noted. Spleen: No significant abnormality. Kidneys: Numerous low-density renal lesions are noted bilaterally, suggestive of cysts. Some of the smaller lesions are difficult to characterize on this exam. There is also a hyperdense abnormality within the upper pole of the left kidney, also difficult to characterize. Small exophytic intermediate density lesion arising from the lateral portion of the right mid to lower kidney also noted (image 39 series 3), difficult to characterize on this exam. No definite kidney stone. No hydronephrosis. Adrenals: No significant abnormality. Bowel: No obstruction. Average fecal residual. Appendix: The appendix could not be identified with certainty. However, there are no secondary signs of appendicitis demonstrated at this time. Lymph Nodes: No pathologically enlarged nodes. Vasculature: Normal caliber aorta. There is moderate to severe aortic and branch vessel atherosclerosis. 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 Severely attenuated distal portion of the splenic vein. Superior mesenteric vein at the level of the portal splenic confluence is visualized, appearing patent. Fluid: There is small to medium volume ascites. Abdominal Wall: No significant abnormality. Other: Engorgement of the omentum is noted. This raises the possibility of omental carcinomatosis. PELVIS: Uterus and Ovaries: Surgically absent uterus. Ovaries are not visualized, possibly surgically absent as well. Bladder: No significant abnormality. Lymph Nodes: No pathologically enlarged nodes. Fluid: No significant free fluid. Other: None. BONES: No suspicious bony lesions. However, bones are osteopenic. This reduces exam sensitivity and specificity for detection of subtle bony lesions and/or fractures. There is severe multilevel degenerative change within the spine. LOWER CHEST: No significant consolidation or effusion. There are several small irregular nodular abnormalities within the right lower lobe, with spiculated appearance. One such abnormality is laterally within the right lower lobe (image 4 series 3), measuring 1.5 cm. Suspect a subtle tiny lingular nodule (image 10 series 3). Similar subtle tiny nodule is suspected within the right middle lobe (image 8 series 3). Additional bibasilar subsegmental consolidation, with features suggestive of atelectasis. Other airspace disease difficult to exclude. IMPRESSION: 1. Intrahepatic and extrahepatic biliary ductal dilation is present with diffuse abnormal appearance of the pancreas neck, head, and uncinate process, worrisome for a primary pancreatic carcinoma. Associated occlusion of the portal vein as well as severe attenuation of the proximal portion of the splenic vein. Superior mesenteric vein near the portal splenic confluence appears patent as visualized. 2. There is a subtle tiny low-density lesion within the posterior aspect of segment-6, difficult to characterize. This may be a tiny cyst, hemangioma, artifact, or metastasis. 3. Induration of the omental vessels with thickening noted. This may be a sequela of thrombosis of the portal vein. However, omental carcinomatosis difficult to exclude with certainty. There is a small to medium volume ascites. 4. There are several irregular nodules within the lung bases bilaterally, right greater than left. These measure up to 1.5 cm. These are worrisome for metastatic disease. 5. Gallbladder is not visualized, probably surgically absent. 6. There is medium to large sliding hiatal and paraesophageal hernia containing two-thirds of the stomach. ABX Reporting Has patient been on IV antibiotics over the past 48 hours?: No Assessment/Plan - Problem List (1) Metastatic cancer Impression: CT scan showed the patient to have mass at the head of the pancreas with likely lung metastasis. Given her advanced age of 87 and her advanced dementia the recommendations the patient should be placed in hospice. I have spoken with the patient's daughter who agrees with this plan. She will be discharged back to [facility] with a hospice referral. (2) Dehydration Impression: Corrected. The patient's creatinine is now 1.0 (3) Hypertension Impression: The patient has a history of hypertension has been receiving atenolol, and chlorthalidone. Her blood pressure has been well managed. Continue present care. Qualifiers: Hypertension type: essential hypertension Qualified Code(s): I10 - Essential (primary) hypertension (4) Hypokalemia Impression: The patient's potassium has been corrected from 2.8-3.8. (5) Hyponatremia Impression: The patient's sodium has been corrected going from 128 up to 134 this morning.Continue present care. (6) Hypothyroidism Impression: Patient has a history of hypothyroidism and takes levothyroxine. She will resume this at home. Qualifiers: Hypothyroidism type: unspecified Qualified Code(s): E03.9 - Hypothyroidism , unspecified (7) Dementia Impression: Patient has moderate to severe dementia and requires assistance with all ADLs. She will be returning back to [facility]. Qualifiers: Dementia type: unspecified type Dementia behavioral disturbance: without behavioral disturbance Qualified Code(s): F03.90 - Unspecified dementia without behavioral disturbance (8) Depression Impression: The patient has a history of dementia and takes Cymbalta. She will resume this back at [facility]. Qualifiers: Depression Type: unspecified Qualified Code(s): F32.9 - Major depressive disorder, single episode, unspecified
[2018-03-10] MEDS ORDERED: GABAPENTIN 100 MG CAPSULE PO SCH (21:00)
[2018-03-11] MEDS: SODIUM CHLORIDE FLUSH 0.9% 10 ML SYRINGE IVP SCH ×2 (01:25→08:47)
[2018-03-11] MEDS: NS W/20 MEQ KCL 1,000 ML IV SCH (02:06)
[2018-03-11 05:38] LABS: BASOPHILS # (AUTO) 0.1 10^3/uL (0.0-0.1); BASOPHILS % (AUTO) 0.8 %; EOSINOPHILS # (AUTO) 0.3 10^3/uL (0.0-0.7); EOSINOPHILS % (AUTO) 3.6 %; HGB - HEMOGLOBIN 12.9 g/dL (12.0-16.0); LYMPHOCYTES # (AUTO) 1.4 10^3/uL (1.5-3.5); LYMPHOCYTES % (AUTO) 15.6 %; MEAN CORPUSCULAR HEMOGLOBIN 29.5 pg (27.0-31.0); MEAN CORPUSCULAR HGB CONC 32.9 g/dL (32.0-36.0); MEAN CORPUSCULAR VOLUME 89.7 fL (81.0-99.0); MEAN PLATELET VOLUME 9.2 fL (7.9-10.8); MONOCYTES # (AUTO) 1.1 10^3/uL (0.0-1.0); MONOCYTES % (AUTO) 12.1 %; NEUTROPHILS # (AUTO) 6.2 10^3/uL (1.5-6.6); NEUTROPHILS % (AUTO) 67.9 %; PLT - PLATELET COUNT 313 10^3/uL (130-450); RED BLOOD COUNT 4.37 10^6/uL (4.20-5.40); RED CELL DISTRIBUTION WIDTH 14.8 % (12.0-15.0); WHITE BLOOD COUNT 9.1 x10^3/uL (4.8-10.8)
[2018-03-11 05:52] LABS: ALBUMIN 2.5 g/dL (3.2-5.5); ALBUMIN/GLOBULIN RATIO 0.8 (1.0-2.2); BILIRUBIN,TOTAL 7.5 mg/dL (0.2-1.0); TOTAL PROTEIN 5.5 g/dL (6.7-8.2)
[2018-03-11] MEDS ORDERED: LEVOTHYROXINE 100 MCG TABLET PO SCH (06:00)
[2018-03-11] MEDS ORDERED: PANTOPRAZOLE 40 MG TABLET PO SCH (07:00)
[2018-03-11] MEDS ORDERED: CHLORTHALIDONE 25 MG TABLET PO SCH (08:00)
[2018-03-11] MEDS ORDERED: POTASSIUM CHLORIDE 10 MEQ CAPSULE PO SCH (08:00)
[2018-03-11] MEDS: ALPRAZolam 0.25 MG TABLET PO SCH (08:41)
[2018-03-11] MEDS: ENOXAPARIN 40 MG/0.4 ML SYRINGE SUBQ SCH (08:47)
[2018-03-11] MEDS: FAMOTIDINE 20 MG TABLET PO SCH (08:47)
[2018-03-11] MEDS: POLYETHYLENE GLYCOL 3350 17 GM PACKET PO SCH (08:47)
[2018-03-11] MEDS ORDERED: DOCUSATE SODIUM 250 MG CAPSULE PO SCH (09:00)
[2018-03-11] MEDS ORDERED: DULoxetine 20 MG CAPSULE PO SCH (09:00)
[2018-03-11] MEDS ORDERED: ATENOLOL 25 MG TABLET PO SCH (09:00)
[2018-03-11] MEDS ORDERED: SENNA 8.6 MG TABLET PO SCH (09:00)
[2018-03-11 11:28] LABS: HEPATITIS A IGM NON-REACTIVE (NON-REACTIVE); HEPATITIS B CORE ANTIBODY IGM NON-REACTIVE (NON-REACTIVE); HEPATITIS B SURFACE ANTIGEN NON-REACTIVE (NON-REACTIVE); HEPATITIS C ANTIBODY NON-REACTIVE (NON-REACTIVE)
--- NOTE | 2018-03-11 11:29 | Discharge Plan ---
"Discharge Plan for SNF / [facility] - DC Plan and Transition Orders Disposition: 03 SNF DC/Xfer Condition: Stable SNF Transition Orders: Admit to: [facility] under the care of Dr Leon Discharge Diagnosis: Pancreatic cancer Medicare Certification: I certify that Post Hospital care home care is medically necessary on a continuing basis for any of the conditions for which she/he is receiving care during hospitalization. Notify PCP of admission and forward orders to primary provider for signature. Weight on admission and weekly. Call PCP immediately if weight increases by 10 pounds or if patient develops dyspnea, chest pain/tightness or edema. House Bowel Program: yes If no BM after 2 days, nurse may give M.O.M. 30ml PO PRN and /or ducolax Supp 1 AK and /or D[place] 250mg P.O., and/or senna 1-2 tabs PO. On day 3 nurse may give repeat above order until residents constipation is resolved. Immunizations: Annual Influenza Vaccine: yes. (between Apr 11 and November 08.) Unless allergy or already given Two-Step PPD: yes per [facility] [phone] or appropriate documentation of approved exceptions Treatments & Other Orders: See MAR Oxygen Orders: 2 l/m PRN dyspnea Medications: PLEASE REFER TO THE DISCHARGE MEDICATION LIST. Insulin Orders? No Allergies and Adverse Reactions: Allergies Allergy/AdvReac Type Severity Reaction Status Date / Time No Known Drug Allergies Allergy Verified 03/09/18 21:47 - Diet Type: Geriatric Texture: Mech soft Liquids: Thin May have monthly special meal: Yes - Therapies | Activity Rehabilitation Potential: Maximize functional status Activity: Activity as Tolerated Weight Bearing: Partial Weight"
--- NOTE | 2018-03-11 13:54 | DISCHARGE SUMMARY ---
Discharge Summary Admit Date: 03/10/18 Discharge Date: 03/11/18 Discharging Provider: Keysha Licona DO Primary Care Provider: Khalif Crespo Code Status: Do Not Attempt Resuscitation Condition at Discharge: Stable Discharge Disposition: SNF DC/Xfer Discharge Facility Name: [facility] - DIAGNOSES Admission Diagnoses: 1. Dehydration 2. Metastatic cancer 3. Hypokalemia 4. Hyponatremia 5. Hypertension 6. Hypothyroidism 7. Dementia 8. Depression Discharge Diagnoses with Status of Each Condition: 1. Dehydration- Corrected/resolved. Suspect the patient's decreased p.o. intake is related to her metastatic pancreatic cancer. Wasting syndrome is expected. The patient is otherwise comfortable and is not complaining of any significant abdominal discomfort. 2. Metastatic cancer- Given the patient's advanced age of 87 and her highly advanced dementia, it does not seem appropriate to subject her to a significant amount of surgery and radiation where her chances of survival are less than 5% even if she were young. The patient's daughter has elected for hospice services. 3. Hypokalemia - Corrected, potassium level 3.8. 4. Hyponatremia- The patient's sodium has increased from 128-134. Continue present care. 5. Hypertension- Well-managed, continue present care. 6. Hypothyroidism- Well-managed, continue present care. 7. Dementia- The patient's dementia is significantly advanced, and she has a fast scale score of 6E. If she did not have pancreatic cancer her life expectancy would still be probably less than 6 months. Continue present care. 8. Depression- Although the patient is significantly demented her mood is good. Continue Celexa. - HPI History of Present Illness: Patient is an 87-year-old female who lives at [facility] with a past medical history significant for advanced dementia, hypertension, obesity, osteoarthritis status post bilateral knee replacements, hypothyroidism and history of breast cancer status post meniscectomy who presented to the emergency department due to poor appetite. The patient states that she does not know why she was brought to the emergency department and thinks that she is fine. The patient has advanced dementia and cannot provide a very reliable history. The records from [facility] state that the patient has not been eating well for the last week and they were concerned that is why they sent her to the emergency department. The patient's primary care physician spoke with the emergency room doctor and confirmed the story stating that the patient has not been eating or drinking for the last week and he was concerned that she may be dehydrated. The patient herself denies any headaches, blurred vision, runny nose, sore throat, nasal congestion, difficulty swallowing, chest pain, fevers, chills, cough, shortness of breath, orthopnea, PND, increased lower extremity swelling, abdominal pain, nausea, vomiting, diarrhea, constipation, urinary urgency, urinary frequency, dysuria, joint pain, joint swelling, back pain, neck stiffness, polyuria, polydipsia, hair loss, skin changes or any focal neurologic deficits. When patient was told that she has not been eating well she states that she has not been eating because she has been trying to lose weight. On presentation to the emergency department the patient is afebrile and vital signs are all within normal limits. The patient's lab work revealed a hypo- natremia of 128 with hypokalemia of 2.8 and hypochloremia of 88 suggesting the patient was very dehydrated. The patient was also found to have a elevated bilirubin of 7.6 with an elevated AST of 139, ALT of 65 and alk phos of 305. The patient also appeared jaundiced on examination and the emergency room physician ordered a CT of her abdomen and pelvis given her presentation of painless jaundice. The CT scan of the abdomen and pelvis revealed intrahepatic and extrahepatic biliary ductal dilation with diffuse abnormal appearance of the pancreas neck, head and uncinate process worrisome for primary pancreatic carcinoma. There is also associated occlusion of the portal vein as well as severe attenuation of the proximal portion of the splenic vein. 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 The patient also was found to have a moderate amount of ascites. The patient was placed in observation for hydration given her lab work showing that she was dehydrated and had hypokalemia. 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 - HOSPITAL COURSE Hospital Course: The patient was admitted to an observation bed and given IV fluids for her dehydration. All long discussion was had between myself and the patient's daughter and she was changed to DO NOT RESUSCITATE status. The patient will be discharged home to [facility] and will be seen by hospice while she is there. - ALLERGIES Allergies/Adverse Reactions: Allergies Allergy/AdvReac Type Severity Reaction Status Date / Time No Known Drug Allergies Allergy Verified 03/09/18 21:47 - MEDICATIONS Home Medications: Ambulatory Orders Medication Instructions Recorded Confirmed Levothyroxine [Synthroid] 100 mcg PO MOTUWETHFRSA@0600 03/04/14 03/10/18 Chlorthalidone 25 mg PO MOWEFR@0800 07/03/16 03/10/18 Acetaminophen [Tylenol Extra 500 mg PO Q6H PRN 03/10/18 03/10/18 Strength] Albuterol 2.5 mg INH Q4H PRN 03/10/18 03/10/18 Atenolol [Tenormin] 25 mg PO DAILY 03/10/18 03/10/18 Calcium Carbonate [Tums (Calcium 500 mg PO QDDINNER 03/10/18 03/10/18 Carbonate 500mg)] DULoxetine [Cymbalta] 20 mg PO DAILY 03/10/18 03/10/18 Gabapentin [Neurontin] 100 mg PO QPM 03/10/18 03/10/18 HYDROcod/ACETAM 5/325 [[place] 5/325] 1 tab PO Q4H PRN 03/10/18 03/10/18 Levothyroxine Sodium [Synthroid] 50 mcg PO [place]@0603/10/18 03/10/18 Omeprazole [PriLOSEC] 20 mg PO DAILY 03/10/18 03/10/18 Potassium Chloride [Micro-K] 10 meq PO 0800 03/10/18 03/10/18 Promethazine Supp [Phenergan Supp] 25 mg OK Q6H PRN 03/10/18 03/10/18 raNITIdine [Zantac] 150 mg PO DAILY 03/10/18 03/10/18 - PHYSICAL EXAM AT DISCHARGE General Appearance: positive: No acute distress, Lethargic Eyes Bilateral: positive: Normal inspection, PERRL, EOMI, No lid inflammation, Conjunctivae nml, No scleral icterus ENT: positive: ENT inspection nml, Pharynx nml, No signs of dehydration Neck: positive: Nml inspection, Thyroid nml, No JVD, Trachea midline, Thyromegaly Respiratory: positive: Chest non-tender, No respiratory distress, Breath sounds nml. negative: Wheezes, Rales, Rhonchi Cardiovascular: positive: Regular rate & rhythm, No murmur, No gallop Peripheral Pulses: positive: 1+ Abdomen: positive: Non-tender, No organomegaly, Nml bowel sounds, No distention. negative: Guarding, Rebound Back: positive: Nml inspection. negative: CVA tenderness (R), CVA tenderness (L ) Skin: positive: Color nml, No rash, Warm, Dry. negative: Cyanosis Extremities: positive: Non-tender, Full ROM, Nml appearance, No pedal edema Neurologic/Psychiatric: positive: Oriented x3, CN's nml (2-12), Motor nml, Sensation nml, Mood/affect nml - LABS Result Diagrams: 03/11/18 05:20 03/11/18 05:20 - DIAGNOSTIC IMAGING Diagnostic Imaging Results: Final report reviewed Diagnostic Imaging Results Comments: EXAM: CT ABDOMEN AND PELVIS EXAM DATE: 03/09/2018 11:41 PM. CLINICAL HISTORY: Painless jaundice. COMPARISONS: None. TECHNIQUE: Routine helical CT imaging was performed through the abdomen and pelvis. IV contrast: 100 mL Isovue 300. Enteric contrast: No. Reconstructions: Coronal and sagittal. In accordance with CT protocol optimization, one or more of the following dose reduction techniques were utilized for this exam: automated exposure control, adjustment of mA and/or KV based on patient size, or use of iterative reconstructive technique. FINDINGS: ABDOMEN: Liver: Small calcified left hepatic lobe granuloma. There is moderate to severe intrahepatic biliary ductal dilation. No definite suspicious hepatic parenchymal mass noted at this time. Subtle possible tiny low-density lesion within the posterior portion of the right hepatic lobe in segment-6 (image 33 series 3), difficult to be certain and difficult to characterize. Stomach/Distal Esophagus: Medium to large sized hiatal and paraesophageal hernia is present. This contains upper two-third of the stomach. Gallbladder: Not visualized, possibly surgically absent. Bile Ducts: Moderate to severe intrahepatic biliary ductal dilation is present. The CBD is also dilated, up to the level of the pancreatic head. Maximal CBD diameter measures 2.3 cm (image 32 series 3). Pancreas: Diffusely abnormal appearance of the pancreas is present. There is heterogeneous appearance of the neck, head, as well as uncinate process of the pancreas. Abnormal low density appearance within the distal body and tail of the pancreas noted. Spleen: No significant abnormality. Kidneys: Numerous low-density renal lesions are noted bilaterally, suggestive of cysts. Some of the smaller lesions are difficult to characterize on this exam. There is also a hyperdense abnormality within the upper pole of the left kidney, also difficult to characterize. Small exophytic intermediate density lesion arising from the lateral portion of the right mid to lower kidney also noted (image 39 series 3), difficult to characterize on this exam. No definite kidney stone. No hydronephrosis. Adrenals: No significant abnormality. Bowel: No obstruction. Average fecal residual. Appendix: The appendix could not be identified with certainty. However, there are no secondary signs of appendicitis demonstrated at this time. Lymph Nodes: No pathologically enlarged nodes. Vasculature: Normal caliber aorta. There is moderate to severe aortic and branch vessel atherosclerosis. 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 Severely attenuated distal portion of the splenic vein. Superior mesenteric vein at the level of the portal splenic confluence is visualized, appearing patent. Fluid: There is small to medium volume ascites. Abdominal Wall: No significant abnormality. Other: Engorgement of the omentum is noted. This raises the possibility of omental carcinomatosis. PELVIS: Uterus and Ovaries: Surgically absent uterus. Ovaries are not visualized, possibly surgically absent as well. Bladder: No significant abnormality. Lymph Nodes: No pathologically enlarged nodes. Fluid: No significant free fluid. Other: None. BONES: No suspicious bony lesions. However, bones are osteopenic. This reduces exam sensitivity and specificity for detection of subtle bony lesions and/or fractures. There is severe multilevel degenerative change within the spine. LOWER CHEST: No significant consolidation or effusion. There are several small irregular nodular abnormalities within the right lower lobe, with spiculated appearance. One such abnormality is laterally within the right lower lobe (image 4 series 3), measuring 1.5 cm. Suspect a subtle tiny lingular nodule (image 10 series 3). Similar subtle tiny nodule is suspected within the right middle lobe (image 8 series 3). Additional bibasilar subsegmental consolidation, with features suggestive of atelectasis. Other airspace disease difficult to exclude. IMPRESSION: 1. Intrahepatic and extrahepatic biliary ductal dilation is present with diffuse abnormal appearance of the pancreas neck, head, and uncinate process, worrisome for a primary pancreatic carcinoma. Associated occlusion of the portal vein as well as severe attenuation of the proximal portion of the splenic vein. Superior mesenteric vein near the portal splenic confluence appears patent as visualized. 2. There is a subtle tiny low-density lesion within the posterior aspect of segment-6, difficult to characterize. This may be a tiny cyst, hemangioma, artifact, or metastasis. 3. Induration of the omental vessels with thickening noted. This may be a sequela of thrombosis of the portal vein. However, omental carcinomatosis difficult to exclude with certainty. There is a small to medium volume ascites. 4. There are several irregular nodules within the lung bases bilaterally, right greater than left. These measure up to 1.5 cm. These are worrisome for metastatic disease. 5. Gallbladder is not visualized, probably surgically absent. 6. There is medium to large sliding hiatal and paraesophageal hernia containing two-thirds of the stomach. - FOLLOW UP Follow Up: Follow-up with hospice this week - TIME SPENT Time Spent in Discharge (Minutes): 45
[2018-03-11 14:51] VITALS: BP 135/60
[2018-03-15] MEDS ORDERED: LEVOTHYROXINE 25 MCG TABLET PO SCH (06:00)
== END 2018-03-11 15:10 | disposition home or self-care (01) | DRG 641 ==
LOC: EDUNIT# → ED 21:36 → OBS 03-10 01:39 → OBSVTOIN 03-10 18:50 → MS2 03-10 20:26
PROVIDERS: ADMIT Internal Medicine; ATTEND Hospitalist
DX: E86.0 Dehydration (principal); E80.6 Other disorders of bilirubin metabolism; C25.8 Malignant neoplasm of overlapping sites of pancreas; C78.02 Secondary malignant neoplasm of left lung; C78.01 Secondary malignant neoplasm of right lung; C78.6 Secondary malignant neoplasm of retroperitoneum and peritoneum; R18.0 Malignant ascites; E87.6 Hypokalemia; E86.1 Hypovolemia; E87.8 Other disorders of electrolyte and fluid balance, not elsewhere classified; E87.1 Hypo-osmolality and hyponatremia; I10 Essential (primary) hypertension; R63.0 Anorexia; F03.90 Unspecified dementia, unspecified severity, without behavioral disturbance, psychotic disturbance, mood disturbance, and anxiety; E66.9 Obesity, unspecified; Z68.34 Body mass index [BMI] 34.0-34.9, adult; E03.9 Hypothyroidism, unspecified; Z85.3 Personal history of malignant neoplasm of breast; Z66 Do not resuscitate; Z51.5 Encounter for palliative care; R18.8 Other ascites; C80.1 Malignant (primary) neoplasm, unspecified; Z79.899 Other long term (current) drug therapy; F32.9 Major depressive disorder, single episode, unspecified
CPT/HCPCS: 36415; 74177; 80048; 80053; 80074; 80076; 83605; 83735; 84100; 85025; 96361; 96365; 96366; 96372; 96374; 96375; 99284; 99285

== ENCOUNTER 2018-03-11 15:28 | Outpatient (CLI) | payer MEDICARE, OTHER | END 2018-03-11 15:29 | disposition home or self-care (01) | LOC: EMS 15:28 | PROVIDERS: ATTEND Surgery | DX: R53.1 Weakness (principal); F03.90 Unspecified dementia, unspecified severity, without behavioral disturbance, psychotic disturbance, mood disturbance, and anxiety; Z74.01 Bed confinement status | CPT/HCPCS: A0425; A0428 ==